=== PATIENT | female | born 1995 | race American Indian/Alaskan Native ===

== ENCOUNTER 2019-05-30 20:35 | Emergency (ER) | payer SELFPAY ==
[2019-05-30 21:52] VITALS: BP 126/84
--- NOTE | 2019-05-30 22:11 | Emergency Department Report ---
Minor Respiratory - HPI Chief Complaint: Upper Respiratory Infection Stated Complaint: COUGH/OUT OF COUNTRY Time Seen by Provider: 05/30/19 21:58 Duration: 5 Days Pain Location: Throat, Nose, Chest Severity: mild Minor Respiratory: Yes Rhinorrhea, Yes Sore Throat, Yes Able to Tolerate Fluids, Yes Cough, Yes Sick Contacts, Yes Fever, No Ear Pain, No Hemoptysis, No Chest Pain, No Shortness of Breath Other History: Ms. Larios is a 24 yo female without past medical conditions who presents with 5 days of fever cough sore throat for 3 days. Treated with amantadine and paracetamol. Spent one year in the [facility]. Cleared medically at [facility] airport. Just arrived to [place] a few hours prior to arrival ED Review of Systems ROS: Stated complaint: COUGH/OUT OF COUNTRY Other details as noted in HPI Comment: All other systems reviewed and negative Constitutional: chills, fever, malaise ENT: throat pain Respiratory: cough Gastrointestinal: denies: abdominal pain Neurological: denies: headache ED Past Medical Hx - Past Medical History Previous Medical History?: No - Surgical History Past Surgical History?: No - Social History Smoking Status: Never Smoker Minor Respiratory Exam - Exam General: Vital signs noted. No distress. Alert and acting appropriately. well appearing smiling NAD HEENT: Yes Moist Mucous Membranes, No Pharyngeal Erythema, No Pharyngeal Exudates, No Rhinorrhea, No Conjuctival Injection, No Frontal Tenderness, No Maxillary Tenderness Neck: Yes Supple, No Adenopathy Lungs: Yes Good Air Exchange, No Wheezes, No Ronchi, No Stridor, No Cough, No Labored Respirations, No Retractions, No Use of Accessory Muscles, No Other Abnormal Lung Sounds Heart: Yes Regular, No Murmur Abdomen: Yes Normal Bowel Sounds, No Tenderness, No Peritoneal Signs Skin: No Rash, No Edema Neurologic: Alert and oriented, no deficits. Musculoskeletal: Unremarkable. ED Course Vital Signs 05/30/19 20:52 Temperature 99.8 F H Pulse Rate 103 H Respiratory 18 Rate Blood Pressure 126/84 O2 Sat by Pulse 99 Oximetry ED Medical Decision Making - Medical Decision Making Clinical dx of influenza with appropriate treatment, patient did not arrive from [facility] or the [facility] low risk for coronavirus dcd' home Critical care attestation.: If time is entered above; I have spent that time in minutes in the direct care of this critically ill patient, excluding procedure time. ED Disposition Clinical Impression: Influenza Disposition: DC-01 TO HOME OR SELFCARE Is pt being admited?: No Does the pt Need Aspirin: No Condition: Stable Instructions: Influenza (ED) Referrals: ROCHELLE BURNS MD [Staff Physician] - 3-5 Days
== END 2019-05-30 22:41 | disposition home or self-care (01) ==
LOC: EDBD → ED 20:35
DX: J11.1 Influenza due to unidentified influenza virus with other respiratory manifestations (principal)
CPT/HCPCS: 99282